=== PATIENT | female | born 1940 | race Caucasian/White ===

== ENCOUNTER 2017-07-27 03:01 | Emergency (ER) | payer OTHER ==
[~2017-07-27] VITALS: Ht 149.9 cm; Wt 69.0 kg
[~2017-07-27 03:01] MED LIST: AMLO5TAB4 PO; CALC-666 PO; CLON0.1T12 PO; COLE625T12 PO; DARB100V SQ; ERGO500017 PO; LEVO25TA2 PO; METR500T PO; NIFE30TA25 PO; PANT40TA3 PO; POTA20TA14 PO
[2017-07-27] MEDS ORDERED: HYDROcodone/APAP 7.5-325MG/15ML UDC ONE (03:57)
[2017-07-27 03:58] LABS: HEMATOCRIT 30.4 % (34.6-47.8); HEMOGLOBIN 10.1 g/dL (11.7-16.4); WHITE BLOOD COUNT 9.9 x10^3/uL (3.4-10)
[2017-07-27] MEDS ORDERED: HYDROcodone/APAP 7.5-325MG/15ML UDC PO ONE (04:00)
[2017-07-27 04:04] LABS: BLOOD UREA NITROGEN 57 mg/dL (7-18)
[2017-07-27] MEDS ORDERED: hydrALAzine 20 MG/ML, 1ML ONE (04:25)
[2017-07-27] MEDS ORDERED: hydrALAzine 20 MG/ML, 1ML IM ONE (04:30)
[2017-07-27 05:15] VITALS: BP 173/69
== END 2017-07-27 05:41 | disposition home or self-care (01) ==
LOC: ED 04:01
DX: J20.9 Acute bronchitis, unspecified (principal); E11.9 Type 2 diabetes mellitus without complications; E87.5 Hyperkalemia; I10 Essential (primary) hypertension
CPT/HCPCS: 36415; 71010; 80048; 82040; 85025; 93005; 96372; 99285; J0360

== ENCOUNTER 2017-11-30 11:10 | Inpatient (IN) | payer OTHER ==
[~2017-11-30] VITALS: Ht 152.4 cm; Wt 62.0 kg
[2017-11-30] MEDS ORDERED: HYDR-3240 PO (12:07)
[2017-11-30] MEDS ORDERED: SODIUM CHLORIDE FLUSH 10ML SYR IVF ONE (12:30)
[2017-11-30] MEDS ORDERED: ONDANSETRON ODT 4 MG PO ONE (12:30)
[2017-11-30] MEDS ORDERED: MECLIZINE CHEWABLE 25 MG TAB PO ONE (12:30)
[2017-11-30] MEDS ORDERED: MECLIZINE CHEWABLE 25 MG TAB ONE (12:41)
[2017-11-30] MEDS ORDERED: ONDANSETRON ODT 4 MG ONE (12:42)
[2017-11-30 12:49] LABS: BASOPHILS % (AUTO) 0 % (0-1); EOSINOPHILS # (AUTO) 0.04 x10^3/uL (0-0.4); EOSINOPHILS % (AUTO) 1 % (1-7); LYMPHOCYTES # (AUTO) 0.87 x10^3/uL (1-3.4); LYMPHOCYTES % (AUTO) 11 % (22-44); MD NO; MEAN CORPUSCULAR HEMOGLOBIN 28.2 pg (27.0-34.8); MEAN CORPUSCULAR HGB CONC 33.4 g/dL (32.4-35.8); MEAN CORPUSCULAR VOLUME 84.4 fL (80-100); MEAN PLATELET VOLUME 6.7 fL (7.4-10.4); MONOCYTES # (AUTO) 0.28 x10^3/uL (0.2-0.8); MONOCYTES % (AUTO) 4 % (2-9); NEUTROPHILS # (AUTO) 6.41 x10^3/uL (1.8-6.8); NEUTROPHILS % (AUTO) 84 % (42-75); PLATELET COUNT 246 x10^3/uL (130-400); RED BLOOD COUNT 3.98 x10^6/uL (3.82-5.3); RED CELL DISTRIBUTION WIDTH 17.1 % (9.6-15.2)
[2017-11-30 13:01] LABS: ALBUMIN 3.2 g/dL (3.4-5.0); ANION GAP 7 mmol/L (5-15); CHLORIDE 96 mmol/L (98-107)
[2017-11-30 13:07] LABS: ALANINE AMINOTRANSFERASE 15 U/L (12-78); ALKALINE PHOSPHATASE 121 U/L (45-117); BILIRUBIN,TOTAL 0.5 mg/dL (0.2-1.0); CREATININE 5.51 mg/dL (0.55-1.02); TOTAL PROTEIN 7.6 g/dL (6.4-8.2)
[2017-11-30 13:08] LABS: TROPONIN I 0.131 ng/mL (0.000-0.045)
[2017-11-30 13:35] LABS: MICROSCOPIC INDICATED
[2017-11-30 13:41] LABS: CULTURE INDICATED? NO
[2017-11-30 16:23] LABS: TROPONIN I 0.151 ng/mL (0.000-0.045)
[2017-11-30 20:07] VITALS: BP 190/78
[2017-11-30] MEDS ORDERED: METOPROLOL TARTRATE 25 MG TABLET PO SCH (21:05)
[2017-11-30] MEDS ORDERED: HYDROcodone/APAP 5/325 TABLET PO PRN (21:30)
[2017-11-30] MEDS ORDERED: [UNRECOGNIZED DRUG - REMARK] MC SCH (21:30)
[2017-11-30] MEDS ORDERED: NITROGLYCERIN 0.4 MG BOTTLE (25 TABS) SL PRN (21:30)
[2017-11-30] MEDS ORDERED: ONDANSETRON 2MG/ML, 2ML IVPush PRN (21:30)
[2017-11-30 23:00] VITALS: BP 130/55
[2017-12-01 01:33] LABS: TROPONIN I 0.218 ng/mL (0.000-0.045)
[2017-12-01] MEDS ORDERED: MORPHINE SULFATE 4 MG/ML, 1ML IVPush PRN (02:30)
[2017-12-01 02:47] VITALS: BP 178/73
[2017-12-01 04:30] VITALS: BP 180/77
[2017-12-01] MEDS: HEPARIN 5,000 UNITS/ML, 1ML SQ SCH ×3 (05:01→21:15)
[2017-12-01] MEDS: METOPROLOL TARTRATE 25 MG TABLET PO SCH ×3 (05:01→18:47)
[2017-12-01 06:00] LABS: BASOPHILS # (AUTO) 0.03 x10^3/uL (0-0.1); BASOPHILS % (AUTO) 1 % (0-1); EOSINOPHILS # (AUTO) 0.13 x10^3/uL (0-0.4); EOSINOPHILS % (AUTO) 2 % (1-7); LYMPHOCYTES # (AUTO) 1.98 x10^3/uL (1-3.4); LYMPHOCYTES % (AUTO) 31 % (22-44); MD NO; MEAN CORPUSCULAR HEMOGLOBIN 27.7 pg (27.0-34.8); MEAN CORPUSCULAR HGB CONC 32.8 g/dL (32.4-35.8); MEAN CORPUSCULAR VOLUME 84.3 fL (80-100); MEAN PLATELET VOLUME 6.9 fL (7.4-10.4); MONOCYTES # (AUTO) 0.69 x10^3/uL (0.2-0.8); MONOCYTES % (AUTO) 11 % (2-9); NEUTROPHILS # (AUTO) 3.64 x10^3/uL (1.8-6.8); NEUTROPHILS % (AUTO) 56 % (42-75); PLATELET COUNT 231 x10^3/uL (130-400); RED BLOOD COUNT 3.76 x10^6/uL (3.82-5.3); RED CELL DISTRIBUTION WIDTH 17.6 % (9.6-15.2)
[2017-12-01] MEDS ORDERED: LEVOTHYROXINE 50 MCG TABLET PO SCH (06:00)
[2017-12-01 06:13] LABS: ANION GAP 5 mmol/L (5-15); CALCIUM 8.9 mg/dL (8.5-10.1); CHLORIDE 98 mmol/L (98-107)
[2017-12-01 06:18] LABS: HEMOGLOBIN A1C 5.6 % (4.2-6.3)
[2017-12-01 06:24] LABS: CREATININE 6.53 mg/dL (0.55-1.02)
[2017-12-01 06:55] VITALS: BP 168/64
[2017-12-01] MEDS: AMLODIPINE 5 MG TABLET PO SCH (08:38)
[2017-12-01] MEDS: CALCIUM CARBONATE 500 MG TAB.CHEW PO SCH ×3 (08:38→16:48)
[2017-12-01] MEDS: MECLIZINE 12.5 MG TABLET PO PRN (08:40)
[2017-12-01] MEDS ORDERED: AMLODIPINE 5 MG TABLET PO SCH (09:00)
[2017-12-01] MEDS: DARBEPOETIN 60 MCG/ML SQ SCH (13:27)
[2017-12-01 13:35] VITALS: BP 154/61
[2017-12-01 18:47] VITALS: BP 164/67
[2017-12-01 20:13] VITALS: BP 164/69
[2017-12-02] VITALS (7 sets, daily range): BP systolic 140–184; BP diastolic 59–70
[2017-12-02] MEDS: HEPARIN 5,000 UNITS/ML, 1ML SQ SCH ×3 (05:57→22:03)
[2017-12-02] MEDS: LEVOTHYROXINE 75 MCG TABLET PO SCH (05:58)
[2017-12-02] MEDS: METOPROLOL TARTRATE 25 MG TABLET PO SCH ×2 (06:01→17:16)
[2017-12-02] MEDS ORDERED: DIAZEPAM 5 MG TABLET ONE (06:53)
[2017-12-02] MEDS ORDERED: DIAZEPAM 10 MG TABLET PO ONE (07:00)
[2017-12-02] MEDS: CALCIUM CARBONATE 500 MG TAB.CHEW PO SCH ×2 (08:54→12:55)
[2017-12-02] MEDS: AMLODIPINE 5 MG TABLET PO SCH (08:54)
[2017-12-02] MEDS: ERGOCALCIFEROL 50,000 UNIT CAPSULE PO SCH (08:54)
[2017-12-02] MEDS ORDERED: CALCIUM CARBONATE 500 MG TAB.CHEW PO PRN (16:00)
[2017-12-03] VITALS (7 sets, daily range): BP systolic 152–192; BP diastolic 61–69
[2017-12-03] MEDS: LEVOTHYROXINE 75 MCG TABLET PO SCH (05:11)
[2017-12-03] MEDS: HEPARIN 5,000 UNITS/ML, 1ML SQ SCH ×3 (05:11→20:49)
[2017-12-03] MEDS: METOPROLOL TARTRATE 25 MG TABLET PO SCH ×2 (05:15→17:47)
[2017-12-03] MEDS: AMLODIPINE 5 MG TABLET PO SCH (09:00)
[2017-12-03] MEDS ORDERED: ALBUMIN HUMAN 25% 50 ML IV PRN (12:00)
[2017-12-04 00:07] VITALS: BP 100/55
[2017-12-04 05:31] LABS: CHLORIDE 99 mmol/L (98-107)
[2017-12-04] MEDS: METOPROLOL TARTRATE 25 MG TABLET PO SCH (05:34)
[2017-12-04] MEDS: LEVOTHYROXINE 75 MCG TABLET PO SCH (05:35)
[2017-12-04] MEDS: HEPARIN 5,000 UNITS/ML, 1ML SQ SCH ×3 (05:35→20:50)
[2017-12-04 05:57] LABS: ALANINE AMINOTRANSFERASE 13 U/L (12-78); ALKALINE PHOSPHATASE 135 U/L (45-117); ANION GAP 9 mmol/L (5-15); BILIRUBIN,TOTAL 0.3 mg/dL (0.2-1.0); CALCIUM 8.8 mg/dL (8.5-10.1); CREATININE 5.05 mg/dL (0.55-1.02); TOTAL PROTEIN 7.4 g/dL (6.4-8.2)
[2017-12-04 06:07] LABS: HEMOGLOBIN A1C 5.6 % (4.2-6.3)
[2017-12-04] MEDS: AMLODIPINE 5 MG TABLET PO SCH (09:00)
[2017-12-04 09:46] VITALS: BP 108/57
[2017-12-04] MEDS: SENNA/DOCUSATE TABLET PO PRN (09:48)
[2017-12-04 13:48] VITALS: BP 117/65
[2017-12-04] MEDS ORDERED: CARVEDILOL 12.5 MG TABLET PO SCH (18:00)
[2017-12-04 18:15] VITALS: BP 147/68
[2017-12-04] MEDS: CARVEDILOL 12.5 MG TABLET PO SCH (18:20)
[2017-12-04 18:29] VITALS: BP 129/62
[2017-12-05 00:37] VITALS: BP 107/58
[2017-12-05] MEDS: HEPARIN 5,000 UNITS/ML, 1ML SQ SCH ×3 (05:09→23:10)
[2017-12-05] MEDS: LEVOTHYROXINE 75 MCG TABLET PO SCH (05:09)
[2017-12-05] MEDS: CARVEDILOL 12.5 MG TABLET PO SCH ×2 (05:10→18:08)
[2017-12-05] MEDS: SENNA/DOCUSATE TABLET PO PRN (05:10)
[2017-12-05 05:44] LABS: BASOPHILS # (AUTO) 0.04 x10^3/uL (0-0.1); BASOPHILS % (AUTO) 1 % (0-1); EOSINOPHILS # (AUTO) 0.19 x10^3/uL (0-0.4); EOSINOPHILS % (AUTO) 3 % (1-7); LYMPHOCYTES # (AUTO) 2.09 x10^3/uL (1-3.4); LYMPHOCYTES % (AUTO) 30 % (22-44); MD NO; MEAN CORPUSCULAR HGB CONC 33.2 g/dL (32.4-35.8); MEAN CORPUSCULAR VOLUME 84.4 fL (80-100); MONOCYTES # (AUTO) 0.81 x10^3/uL (0.2-0.8); MONOCYTES % (AUTO) 11 % (2-9); NEUTROPHILS # (AUTO) 3.95 x10^3/uL (1.8-6.8); NEUTROPHILS % (AUTO) 56 % (42-75); PLATELET COUNT 217 x10^3/uL (130-400); RED BLOOD COUNT 3.86 x10^6/uL (3.82-5.3); RED CELL DISTRIBUTION WIDTH 17.6 % (9.6-15.2)
[2017-12-05 05:57] LABS: CHLORIDE 94 mmol/L (98-107)
[2017-12-05 06:14] LABS: ALANINE AMINOTRANSFERASE 13 U/L (12-78); ALBUMIN 2.9 g/dL (3.4-5.0); ALKALINE PHOSPHATASE 100 U/L (45-117); ANION GAP 11 mmol/L (5-15); BILIRUBIN,TOTAL 0.4 mg/dL (0.2-1.0); CALCIUM 9.2 mg/dL (8.5-10.1); CREATININE 6.63 mg/dL (0.55-1.02); TOTAL PROTEIN 6.9 g/dL (6.4-8.2)
[2017-12-05 06:55] VITALS: BP 124/61
[2017-12-05] MEDS: AMLODIPINE 5 MG TABLET PO SCH (09:09)
[2017-12-05] MEDS: MECLIZINE 12.5 MG TABLET PO PRN (09:10)
[2017-12-05 13:10] VITALS: BP 115/56
[2017-12-05 18:51] VITALS: BP 143/90
[2017-12-05] MEDS: MECLIZINE 12.5 MG TABLET PO SCH (21:30)
[2017-12-05 23:18] VITALS: BP 167/67
[2017-12-06] VITALS (7 sets, daily range): BP systolic 124–170; BP diastolic 49–70
[2017-12-06 04:40] LABS: BASOPHILS % (AUTO) 1 % (0-1); EOSINOPHILS # (AUTO) 0.22 x10^3/uL (0-0.4); EOSINOPHILS % (AUTO) 3 % (1-7); LYMPHOCYTES # (AUTO) 2.32 x10^3/uL (1-3.4); LYMPHOCYTES % (AUTO) 29 % (22-44); MD NO; MEAN CORPUSCULAR HEMOGLOBIN 28.4 pg (27.0-34.8); MEAN CORPUSCULAR HGB CONC 33.5 g/dL (32.4-35.8); MEAN CORPUSCULAR VOLUME 84.7 fL (80-100); MEAN PLATELET VOLUME 7.8 fL (7.4-10.4); MONOCYTES # (AUTO) 0.83 x10^3/uL (0.2-0.8); MONOCYTES % (AUTO) 10 % (2-9); NEUTROPHILS # (AUTO) 4.61 x10^3/uL (1.8-6.8); NEUTROPHILS % (AUTO) 57 % (42-75); PLATELET COUNT 245 x10^3/uL (130-400); RED BLOOD COUNT 3.97 x10^6/uL (3.82-5.3); RED CELL DISTRIBUTION WIDTH 18.2 % (9.6-15.2)
[2017-12-06 04:55] LABS: CHLORIDE 94 mmol/L (98-107)
[2017-12-06 05:02] LABS: ALANINE AMINOTRANSFERASE 10 U/L (12-78); ALBUMIN 2.9 g/dL (3.4-5.0); ALKALINE PHOSPHATASE 101 U/L (45-117); ANION GAP 12 mmol/L (5-15); BILIRUBIN,TOTAL 0.3 mg/dL (0.2-1.0); CALCIUM 9.2 mg/dL (8.5-10.1); CREATININE 8.03 mg/dL (0.55-1.02); TOTAL PROTEIN 7.1 g/dL (6.4-8.2)
[2017-12-06] MEDS: CARVEDILOL 12.5 MG TABLET PO SCH ×2 (05:58→17:36)
[2017-12-06] MEDS: LEVOTHYROXINE 75 MCG TABLET PO SCH (05:58)
[2017-12-06] MEDS: MECLIZINE 12.5 MG TABLET PO SCH ×2 (08:44→20:20)
[2017-12-06] MEDS: HEPARIN 5,000 UNITS/ML, 1ML SQ SCH ×2 (08:44→17:36)
[2017-12-06] MEDS: AMLODIPINE 5 MG TABLET PO SCH (08:44)
[2017-12-07] MEDS: ONDANSETRON ODT 4 MG PO PRN (00:30)
[2017-12-07 00:33] VITALS: BP 160/66
[2017-12-07] MEDS: HEPARIN 5,000 UNITS/ML, 1ML SQ SCH ×3 (01:14→17:17)
[2017-12-07 05:18] LABS: BASOPHILS # (AUTO) 0.11 x10^3/uL (0-0.1); BASOPHILS % (AUTO) 1 % (0-1); EOSINOPHILS # (AUTO) 0.13 x10^3/uL (0-0.4); EOSINOPHILS % (AUTO) 2 % (1-7); LYMPHOCYTES # (AUTO) 2.02 x10^3/uL (1-3.4); LYMPHOCYTES % (AUTO) 25 % (22-44); MD NO; MEAN CORPUSCULAR HEMOGLOBIN 27.5 pg (27.0-34.8); MEAN CORPUSCULAR HGB CONC 33.1 g/dL (32.4-35.8); MEAN CORPUSCULAR VOLUME 83.3 fL (80-100); MONOCYTES # (AUTO) 1.05 x10^3/uL (0.2-0.8); MONOCYTES % (AUTO) 13 % (2-9); NEUTROPHILS # (AUTO) 4.64 x10^3/uL (1.8-6.8); NEUTROPHILS % (AUTO) 58 % (42-75); PLATELET COUNT 229 x10^3/uL (130-400); RED BLOOD COUNT 4.27 x10^6/uL (3.82-5.3); RED CELL DISTRIBUTION WIDTH 18.1 % (9.6-15.2)
[2017-12-07 05:28] LABS: ALBUMIN 3.3 g/dL (3.4-5.0); ANION GAP 10 mmol/L (5-15); CALCIUM 9.5 mg/dL (8.5-10.1); CHLORIDE 97 mmol/L (98-107)
[2017-12-07 05:31] LABS: ALANINE AMINOTRANSFERASE 14 U/L (12-78); ALKALINE PHOSPHATASE 99 U/L (45-117); BILIRUBIN,TOTAL 0.4 mg/dL (0.2-1.0); CREATININE 4.97 mg/dL (0.55-1.02)
[2017-12-07 06:12] VITALS: BP 149/54
[2017-12-07] MEDS: CARVEDILOL 12.5 MG TABLET PO SCH ×2 (06:13→17:17)
[2017-12-07] MEDS: LEVOTHYROXINE 75 MCG TABLET PO SCH (06:13)
[2017-12-07 07:11] VITALS: BP 170/63
[2017-12-07] MEDS: AMLODIPINE 5 MG TABLET PO SCH (08:49)
[2017-12-07] MEDS: MECLIZINE 12.5 MG TABLET PO SCH ×2 (08:49→21:20)
[2017-12-07] MEDS: ERGOCALCIFEROL 50,000 UNIT CAPSULE PO SCH (08:49)
[2017-12-07 12:32] VITALS: BP 164/69
[2017-12-07 18:56] VITALS: BP 117/63
[2017-12-08 00:10] VITALS: BP 155/66
[2017-12-08] MEDS: HEPARIN 5,000 UNITS/ML, 1ML SQ SCH ×4 (01:30→20:20)
[2017-12-08 05:26] LABS: CALCIUM 9.2 mg/dL (8.5-10.1); CHLORIDE 93 mmol/L (98-107)
[2017-12-08 05:32] LABS: ALANINE AMINOTRANSFERASE 16 U/L (12-78); ALKALINE PHOSPHATASE 93 U/L (45-117); ANION GAP 10 mmol/L (5-15); BILIRUBIN,TOTAL 0.4 mg/dL (0.2-1.0); CREATININE 6.94 mg/dL (0.55-1.02); TOTAL PROTEIN 7.1 g/dL (6.4-8.2)
[2017-12-08] MEDS: LEVOTHYROXINE 75 MCG TABLET PO SCH (05:44)
[2017-12-08] MEDS: CARVEDILOL 12.5 MG TABLET PO SCH ×2 (05:44→20:20)
[2017-12-08 07:07] VITALS: BP 148/69
[2017-12-08] MEDS: AMLODIPINE 5 MG TABLET PO SCH ×2 (09:00→20:22)
[2017-12-08] MEDS: SENNA/DOCUSATE TABLET PO PRN (09:50)
[2017-12-08] MEDS: MECLIZINE 12.5 MG TABLET PO SCH ×2 (09:50→20:22)
[2017-12-08] MEDS: DARBEPOETIN 60 MCG/ML SQ SCH (12:30)
[2017-12-08 13:42] VITALS: BP 151/66
[2017-12-08] MEDS ORDERED: MAGNESIUM CITRATE 300ML ORAL SOL PO PRN (14:00)
[2017-12-08 20:16] VITALS: BP 165/53
[2017-12-09 00:40] VITALS: BP 110/55
[2017-12-09 05:24] VITALS: BP 114/54
[2017-12-09] MEDS: CARVEDILOL 12.5 MG TABLET PO SCH (05:26)
[2017-12-09] MEDS: LEVOTHYROXINE 75 MCG TABLET PO SCH (05:26)
[2017-12-09] MEDS: HEPARIN 5,000 UNITS/ML, 1ML SQ SCH ×2 (05:27→14:55)
[2017-12-09 06:01] LABS: BASOPHILS # (AUTO) 0.06 x10^3/uL (0-0.1); BASOPHILS % (AUTO) 1 % (0-1); EOSINOPHILS # (AUTO) 0.14 x10^3/uL (0-0.4); EOSINOPHILS % (AUTO) 2 % (1-7); LYMPHOCYTES # (AUTO) 1.85 x10^3/uL (1-3.4); LYMPHOCYTES % (AUTO) 21 % (22-44); MD NO; MEAN CORPUSCULAR HEMOGLOBIN 28.1 pg (27.0-34.8); MEAN CORPUSCULAR VOLUME 85.1 fL (80-100); MEAN PLATELET VOLUME 8.3 fL (7.4-10.4); MONOCYTES # (AUTO) 1.32 x10^3/uL (0.2-0.8); MONOCYTES % (AUTO) 15 % (2-9); NEUTROPHILS # (AUTO) 5.48 x10^3/uL (1.8-6.8); NEUTROPHILS % (AUTO) 62 % (42-75); PLATELET COUNT 268 x10^3/uL (130-400); RED BLOOD COUNT 4.45 x10^6/uL (3.82-5.3); RED CELL DISTRIBUTION WIDTH 18.1 % (9.6-15.2)
[2017-12-09 06:13] LABS: ALBUMIN 3.2 g/dL (3.4-5.0); ANION GAP 10 mmol/L (5-15); CHLORIDE 94 mmol/L (98-107)
[2017-12-09 06:18] LABS: ALANINE AMINOTRANSFERASE 18 U/L (12-78); ALKALINE PHOSPHATASE 106 U/L (45-117); BILIRUBIN,TOTAL 0.5 mg/dL (0.2-1.0); CALCIUM 9.3 mg/dL (8.5-10.1); CREATININE 4.72 mg/dL (0.55-1.02); TOTAL PROTEIN 7.9 g/dL (6.4-8.2)
[2017-12-09 06:54] VITALS: BP 102/55
[2017-12-09] MEDS: AMLODIPINE 5 MG TABLET PO SCH ×2 (08:41→08:43)
[2017-12-09] MEDS: ERGOCALCIFEROL 50,000 UNIT CAPSULE PO SCH (08:42)
[2017-12-09] MEDS: MECLIZINE 12.5 MG TABLET PO SCH (08:42)
[2017-12-09] MEDS ORDERED: BISACODYL 5 MG EC TABLET ONE (11:08)
[2017-12-09] MEDS: ONDANSETRON ODT 4 MG PO PRN (11:28)
[2017-12-09] MEDS ORDERED: BISACODYL 5 MG EC TABLET PO PRN (11:30)
[2017-12-09] MEDS ORDERED: BISACODYL 10 MG SUPP PR PRN (11:30)
[2017-12-09 13:30] VITALS: BP 95/53
[2017-12-09] MEDS ORDERED: LEVO75TA PO (14:08)
[2017-12-09] MEDS ORDERED: MECL12.52 PO (14:08)
== END 2017-12-09 16:10 | DRG 280 ==
LOC: ED 16:19 → EDIP 16:41 → INTOOBSV 16:41 → 5SO 20:04 → OBSVTOIN 12-01 14:17 → 4WST 12-02 23:36
PROVIDERS: ADMIT Internal Medicine; ATTEND Internal Medicine
PROC: 5A1D70Z Performance of Urinary Filtration, Intermittent, Less than 6 Hours Per Day (ICD-10-PCS; 2017-12-01)
PROC: 5A1D70Z Performance of Urinary Filtration, Intermittent, Less than 6 Hours Per Day (ICD-10-PCS; 2017-12-03)
PROC: 5A1D70Z Performance of Urinary Filtration, Intermittent, Less than 6 Hours Per Day (ICD-10-PCS; 2017-12-06)
PROC: 5A1D70Z Performance of Urinary Filtration, Intermittent, Less than 6 Hours Per Day (ICD-10-PCS; principal; 2017-12-08)
DX: I21.4 Non-ST elevation (NSTEMI) myocardial infarction (principal); N18.6 End stage renal disease; I13.2 Hypertensive heart and chronic kidney disease with heart failure and with stage 5 chronic kidney disease, or end stage renal disease; E87.1 Hypo-osmolality and hyponatremia; I50.32 Chronic diastolic (congestive) heart failure; N25.81 Secondary hyperparathyroidism of renal origin; E11.21 Type 2 diabetes mellitus with diabetic nephropathy; D63.1 Anemia in chronic kidney disease; E03.9 Hypothyroidism, unspecified; E11.22 Type 2 diabetes mellitus with diabetic chronic kidney disease; E55.9 Vitamin D deficiency, unspecified; E78.5 Hyperlipidemia, unspecified; H81.09 Meniere's disease, unspecified ear; K21.9 Gastro-esophageal reflux disease without esophagitis; Z96.1 Presence of intraocular lens; M54.9 Dorsalgia, unspecified; H81.10 Benign paroxysmal vertigo, unspecified ear; R26.9 Unspecified abnormalities of gait and mobility; Z79.4 Long term (current) use of insulin; Z79.899 Other long term (current) drug therapy; Z82.49 Family history of ischemic heart disease and other diseases of the circulatory system; Z83.3 Family history of diabetes mellitus; Z98.41 Cataract extraction status, right eye; Z98.42 Cataract extraction status, left eye
CPT/HCPCS: 36415; 70450; 70551; 71045; 80048; 80053; 81001; 82962; 83036; 83735; 84100; 84443; 84484; 85025; 86704; 86706; 87340; 93005; 99285; G0378; J0881; J1644; P9047; Q0162